=== PATIENT | female | born 1950 | race Caucasian/White ===

== ENCOUNTER 2019-06-27 12:10 | Outpatient (CLI) | payer MEDICARE ==
[2019-06-27] MEDS ORDERED: Magnevist 469MG/ML 20 ML VIAL ONE (14:02)
--- NOTE | 2019-06-27 14:02 | MRI ---
MRI LUMBAR SPINE WITH AND WITHOUT CONTRAST: HISTORY: Sacral insufficiency fracture. Aneurysmal bone cyst. COMPARISON: 10/15/2016 06/10/2016 FINDINGS: Appropriate T1 marrow signal intensity of the lumbar vertebrae. Vertebral body heights are maintained . There is no fracture. No significant STIR hyperintensity to suggest vertebral body edema or ligamentous injury. Redemonstration of a T2 hyperintensity involving the L3 spinous process, measuring 1.2 cm craniocauda l by 1.7 cm anterior-posterior by 0.8 cm mediolateral. There continues to be absence of enhancement. Imaging features are compatible with a solitary bone cyst. Previously noted edema involving the sacrum has resolved. There is no evidence of an acute sacral ins ufficiency fracture. 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 Symmetric signal intensity of the paraspinal muscles. Appropriate signal intensity of the visualized solid organs. Post contrast images: No abnormal enhancement of the vertebral bodies. No abnormal enhancement within the thecal sac including the cauda equina and conus medullaris. Spondylolisthesis: L3-L4: 2.3 mm of anterolisthesis L4-L5: 4.3 mm of anterolisthesis T12-L1: Adequate disc hydration. No significant central canal stenosis or significant neural foramina l narrowing. L1-L2: Adequate disc hydration. No significant central canal stenosis or significant neural foraminal narrowing. L2-L3: Desiccation with mild loss of disc space height. Broad-based disc bulge, ligament flavum thick ening and facet hypertrophy result in mild to moderate central canal stenosis. Moderate bilateral neural foraminal narrowing. L3-L4: Desiccation with mild loss of disc space height. Minimal left and right paracentral disc bulge s. Mild to moderate central canal stenosis. Moderate bilateral neural foraminal narrowing. L4-L5: Desiccation with mild loss of disc space height. Broad-based disc bulge, ligament flavum thick ening and facet hypertrophy result in moderate to severe central canal stenosis. The degree of central canal stenosis has progressed from prior examination. Moderate to severe bilateral neural for aminal narrowing. L5-S1: No significant central canal stenosis. Bilaterally there is mild neural foraminal narrowing. Incidentally, there are partially evaluated bilateral T2 adnexal hyperintensities. IMPRESSION: 1. Moderate to severe central canal stenosis at L4-L5. Moderate to severe bilateral foraminal narrowi ng at L4-L5. 2. 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 3. No evidence of acute insufficiency fracture of the sacrum. Previously noted post traumatic changes have resolved. 4. Partially evaluated bilateral adnexal T2 hyperintensities. Consider pelvic MRI. Transcribed Date/Time: 06/27/2019 2:25 PM
== END 2019-06-27 12:11 | disposition home or self-care (01) ==
LOC: MRI 12:10
PROVIDERS: ATTEND Neurological Surgery
DX: M85.50 Aneurysmal bone cyst, unspecified site (principal); M48.56XA Collapsed vertebra, not elsewhere classified, lumbar region, initial encounter for fracture; M48.061 Spinal stenosis, lumbar region without neurogenic claudication
CPT/HCPCS: 72158; 82565; A9579